=== PATIENT | female | born 1980 | race Caucasian/White ===

== ENCOUNTER 2024-12-27 02:46 | Day surgery (SDC) | payer OTHER, SELFPAY ==
[2024-12-13 10:20] VITALS: BMI 36.6
--- OUTSIDE RECORDS SUMMARY | 2024-12-27 02:49 | XMS_ITS | Patient Health Record ---
Author Organization [email or web address] [place] ([address]) Address [address] [place] [address] Care Team Providers Care Software Engineering Manager Name Role Phone Shannan HILLIARD, Christopher Primary Care Provider UnavailDr. Reinaldo Gibbs Unavailable [phone] Janelle Mendoza Unavailable Unavailable Bubba Ramirez Unavailable [phone] Allergies No Known Allergies Reason For Referral No Information Medications Medication SIG (Take, Route, Frequency, Duration) Notes Start Date End Date Status ANABELLA D OTC 24HR U nknown SINGULAIR 10 mg 1 tab(s) orally once a day; Duration: 30 day(s) Unknown MORPHINE 15 mg 1 tab(s) orally bid Unknown METHOCARBAMOL 750 mg 2 tab(s) orally 3 t imes a day Unknown VSL#3 - 1-2 cap(s) orally on ce a day; Duration: 30 days Active SUMATRIPTAN 100 mg 1 tab(s) orally bid prn Unknown MOVANTIK 12.5 mg 1 tab(s) as needed for constipation Unknown TRAZODONE 50mg 1 by mouth at bedtime 250mg at HS Unknown QULIPTA 60 mg 1 tab(s) orally once a day; Duration: 30 days 03/17/2023 Unknown BUSPIRONE 15 mg 1 tab(s) orally 2 ti mes a day; Duration: 30 day(s) Unknown DULOXETINE 60 mg 1 cap(s) orally once a day; Duration: 30 day(s) Unknown GLUMETZA 1000 mg 1 tab(s) orally once a day; Duration: 30 day(s) PCOS Unknown ATORVASTATIN 20 mg 1 tab(s) orally once a day; Duration: 30 day(s) Unknown Social History Tobacco Use: Social History Observation Description Date Details (start date - stop date) Former Smoker NA - NA Smoking Smart Form: Question Answer Notes Are you a: former smoker Additional Findings:Tobacco Non-User Non-smoker for caodaism reasons Section Notes: Former smoker, quite back in 2008. Drinks only rarely. Problems Problem Type SNOMED Code ICD Code Onset Dates Problem Status W/U Status Risk Notes Problem Morbid obesity (disorder) (058293860) Morbid (severe) obesity due to excess calories (E66.01) Active confirmed Problem Chronic migraine without aura, non-intractable (924572526108614 ) Chronic migraine without aura, not intractable, without status migrainosus (G43.709) Active confirmed Problem Drug induced headache (418515223792269 ) Drug-induced headache, not elsewhere classified, not intractable (G44.40) Active confirmed Problem Insomnia (724197941) Insomnia, unspecified (G47.00) Active confirmed Problem Cervicalgia (00303110) Cervicalgia (M54.2) Active confirmed Problem Tachycardia (6934301) Tachycardia, unspecified (R00.0) Active confirmed Problem Painful micturition (33843130) Painful micturition, unspecified (R30.9) Active confirmed Problem Malaise (178787576) Other malaise (R53.81) Active confirmed Problem Chronic fatigue syndrome (disorder) (14090845) Chronic fatigue, unspecified (R53.82) Active confirmed Problem Fatigue (50292469) Other fatigue (R53.83) Active confirmed Problem Abnormal weight gain (908262169) Abnormal weight gain (R63.5) Active confirmed Problem Muscle pain (33655567) Myalgia, unspecified site (M79.10) Active confirmed Vital Signs Height 62 in 12/14/2024 Weight 200.8 lbs 12/14/2024 BMI 36.72 kg/m2 12/14/2024 Encounters Encounter Location Date Provider Diagnosis Formerly [facility] [place] ([address]) [address] [place] [phone] 01/04/2024 Bubba Ramirez Morbid (severe) obesity due to excess calories E66.01 ; Chronic fatigue, unspecified R53.82 ; Other fatigue R53.83 ; Other malaise R53.81 ; Tachycardia, unspecified R00.0 ; Decreased libido R68.82 and Abnormal level of hormones in specimens from female genital organs R87.1 [facility] ([address]) [address] [place] [phone] 01/11/2024 Bubba James Morbid (severe) obesity due to excess calories E66.01 ; Chronic fatigue, unspecified R53.82 ; Other fatigue R53.83 ; Other malaise R53.81 ; Tachycardia, unspecified R00.0 ; Decreased libido R68.82 and Abnormal level of hormones in specimens from female genital organs R87.1 [facility] ([address]) [address] [place] [phone] 01/18/2024 Bubbaromaine Ramirez Morbid (severe) obesity due to excess calories E66.01 ; Chronic fatigue, unspecified R53.82 ; Other fatigue R53.83 ; Other malaise R53.81 ; Tachycardia, unspecified R00.0 ; Decreased libido R68.82 and Abnormal level of hormones in specimens from female genital organs R87.1 [facility] ([address]) [address] [place] [phone] 01/25/2024 Bubba Ramirez Morbid (severe) obesity due to excess calories E66.01 ; Chronic fatigue, unspecified R53.82 ; Other fatigue R53.83 ; Other malaise R53.81 ; Tachycardia, unspecified R00.0 ; Decreased libido R68.82 and Abnormal level of hormones in specimens from female genital organs R87.1 [facility] ([address]) [address] [place] [phone] 02/15/2024 Bubba Ramirez Morbid (severe) obesity due to excess calories E66.01 ; Chronic fatigue, unspecified R53.82 ; Other fatigue R53.83 ; Other malaise R53.81 ; Tachycardia, unspecified R00.0 ; Decreased libido R68.82 and Abnormal level of hormones in specimens from female genital organs R87.1 [facility] ([address]) [address] [place] [phone] 03/14/2024 Bubba Ramirez Morbid (severe) obesity due to excess calories E66.01 ; Chronic fatigue, unspecified R53.82 ; Other fatigue R53.83 ; Other malaise R53.81 ; Tachycardia, unspecified R00.0 ; Decreased libido R68.82 and Abnormal level of hormones in specimens from female genital organs R87.1 [facility] ([address]) [address] [place] [phone] 03/21/2024 Bubba Ramirez Morbid (severe) obesity due to excess calories E66.01 ; Chronic fatigue, unspecified R53.82 ; Other fatigue R53.83 ; Other malaise R53.81 ; Tachycardia, unspecified R00.0 ; Decreased libido R68.82 and Abnormal level of hormones in specimens from female genital organs R87.1 [facility] ([address]) [address] [place] [phone] 03/28/2024 Bubba James Morbid (severe) obesity due to excess calories E66.01 ; Chronic fatigue, unspecified R53.82 ; Other fatigue R53.83 ; Other malaise R53.81 ; Tachycardia, unspecified R00.0 ; Decreased libido R68.82 and Abnormal level of hormones in specimens from female genital organs R87.1 [facility] ([address]) [address] [place] [phone] 04/12/2024 Bubba Ramirez Morbid (severe) obesity due to excess calories E66.01 ; Chronic fatigue, unspecified R53.82 ; Other fatigue R53.83 ; Other malaise R53.81 ; Tachycardia, unspecified R00.0 ; Decreased libido R68.82 and Abnormal level of hormones in specimens from female genital organs R87.1 [facility] ([address]) [address] [place] [phone] 05/02/2024 Bubba James Morbid (severe) obesity due to excess calories E66.01 ; Chronic fatigue, unspecified R53.82 ; Other fatigue R53.83 ; Other malaise R53.81 ; Tachycardia, unspecified R00.0 ; Decreased libido R68.82 and Abnormal level of hormones in specimens from female genital organs R87.1 [facility] ([address]) [address] [place] [address] 05/16/2024 Bubba Ramirez Morbid (severe) obesity due to excess calories E66.01 ; Chronic fatigue, unspecified R53.82 ; Other fatigue R53.83 ; Other malaise R53.81 ; Tachycardia, unspecified R00.0 ; Decreased libido R68.82 and Abnormal level of hormones in specimens from female genital organs R87.1 [facility] [address] [facility] [address] [place] [address] 05/31/2024 Bubba Ramirez Morbid (severe) obesity due to excess calories E66.01 ; Chronic fatigue, unspecified R53.82 ; Other fatigue R53.83 ; Other malaise R53.81 ; Tachycardia, unspecified R00.0 ; Decreased libido R68.82 and Abnormal level of hormones in specimens from female genital organs R87.1 [facility] ([address]) [address] [place] [phone] 05/31/2024 Bubba Ramirez [facility] ([address]) [address] [place] [phone] 06/13/2024 Bubba Ramirez Morbid (severe) obesity due to excess calories E66.01 ; Chronic fatigue, unspecified R53.82 ; Other fatigue R53.83 ; Other malaise R53.81 ; Tachycardia, unspecified R00.0 ; Decreased libido R68.82 and Abnormal level of hormones in specimens from female genital organs R87.1 [facility] ([address]) [address] [place] [address] 07/04/2024 Bubba Ramirez [facility] ([address]) [address] [place] [address] 07/19/2024 Bubba Ramirez Morbid (severe) obesity due to excess calories E66.01 ; Chronic fatigue, unspecified R53.82 ; Other fatigue R53.83 ; Other malaise R53.81 ; Tachycardia, unspecified R00.0 ; Decreased libido R68.82 and Abnormal level of hormones in specimens from female genital organs R87.1 [facility] ([address]) [address] [place] [phone] 07/27/2024 Bubba Ramirez Morbid (severe) obesity due to excess calories E66.01 ; Chronic fatigue, unspecified R53.82 ; Other fatigue R53.83 ; Other malaise R53.81 ; Tachycardia, unspecified R00.0 ; Decreased libido R68.82 and Abnormal level of hormones in specimens from female genital organs R87.1 [facility] ([address]) [address] [place] [phone] 08/18/2024 Bubba Ramirez Morbid (severe) obesity due to excess calories E66.01 ; Chronic fatigue, unspecified R53.82 ; Other fatigue R53.83 ; Other malaise R53.81 ; Tachycardia, unspecified R00.0 ; Decreased libido R68.82 and Abnormal level of hormones in specimens from female genital organs R87.1 [facility] ([address]) [address] [place] [phone] 08/25/2024 Bubba Ramirez Morbid (severe) obesity due to excess calories E66.01 ; Chronic fatigue, unspecified R53.82 ; Other fatigue R53.83 ; Other malaise R53.81 ; Tachycardia, unspecified R00.0 ; Decreased libido R68.82 and Abnormal level of hormones in specimens from female genital organs R87.1 [facility] [address] [facility] [address] [place] [address] 08/25/2024 Bubba Ramirez [facility] ([address]) [address] [place] [phone] 08/31/2024 Bubba Ramirez Morbid (severe) obesity due to excess calories E66.01 ; Chronic fatigue, unspecified R53.82 ; Other fatigue R53.83 ; Other malaise R53.81 ; Tachycardia, unspecified R00.0 ; Decreased libido R68.82 and Abnormal level of hormones in specimens from female genital organs R87.1 [facility] ([address]) [address] [place] [phone] 09/21/2024 Bubba Ramirez Morbid (severe) obesity due to excess calories E66.01 ; Chronic fatigue, unspecified R53.82 ; Other fatigue R53.83 ; Other malaise R53.81 ; Tachycardia, unspecified R00.0 ; Decreased libido R68.82 and Abnormal level of hormones in specimens from female genital organs R87.1 [facility] ([address]) [address] [place] [phone] 10/18/2024 Bubba Ramirez Morbid (severe) obesity due to excess calories E66.01 ; Chronic fatigue, unspecified R53.82 ; Other fatigue R53.83 ; Other malaise R53.81 ; Tachycardia, unspecified R00.0 ; Decreased libido R68.82 and Abnormal level of hormones in specimens from female genital organs R87.1 [facility] ([address]) [address] [place] [phone] 11/01/2024 Bubba Ramirez Morbid (severe) obesity due to excess calories E66.01 ; Chronic fatigue, unspecified R53.82 ; Other fatigue R53.83 ; Other malaise R53.81 ; Tachycardia, unspecified R00.0 ; Decreased libido R68.82 and Abnormal level of hormones in specimens from female genital organs R87.1 [facility] ([address]) [address] [place] [phone] 11/29/2024 Bubba Ramirez Morbid (severe) obesity due to excess calories E66.01 ; Chronic fatigue, unspecified R53.82 ; Other fatigue R53.83 ; Other malaise R53.81 ; Tachycardia, unspecified R00.0 ; Decreased libido R68.82 and Abnormal level of hormones in specimens from female genital organs R87.1 [facility] ([address]) [address] [place] [phone] 12/14/2024 Bubba Ramirez Morbid (severe) obesity due to excess calories E66.01 ; Chronic fatigue, unspecified R53.82 ; Other fatigue R53.83 ; Other malaise R53.81 ; Tachycardia, unspecified R00.0 ; Decreased libido R68.82 and Abnormal level of hormones in specimens from female genital organs R87.1 [facility] ([address]) [address] [place] [phone] 12/14/2024 Bubba Ramirez [facility] ([address]) [address] [place] [phone] 02/29/2024 Bubba Ramirez Morbid (severe) obesity due to excess calories E66.01 ; Chronic fatigue, unspecified R53.82 ; Other fatigue R53.83 ; Other malaise R53.81 ; Tachycardia, unspecified R00.0 ; Decreased libido R68.82 and Abnormal level of hormones in specimens from female genital organs R87.1 [facility] ([address]) [address] [place] [phone] 02/29/2024 Bubba Ramirez Assessments Encounter Date Diagnosis (ICD Code) Assessment Notes Treatment Notes Treatment Clinical Notes Section Notes 01/04/2024 Morbid (severe) obesity due to excess calories (ICD-10 - E66.01) 01/04/2024 Chronic fatigue, unspecified (ICD-10 - R53.82) 01/11/2024 Chronic fatigue, unspecified (ICD-10 - R53.82) 01/11/2024 Morbid (severe) obesity due to excess calories (ICD-10 - E66.01) 01/18/2024 Morbid (severe) obesity due to excess calories (ICD-10 - E66.01) 01/18/2024 Chronic fatigue, unspecified (ICD-10 - R53.82) 01/25/2024 Morbid (severe) obesity due to excess calories (ICD-10 - E66.01) 01/25/2024 Chronic fatigue, unspecified (ICD-10 - R53.82) 02/15/2024 Morbid (severe) obesity due to excess calories (ICD-10 - E66.01) 02/15/2024 Chronic fatigue, unspecified (ICD-10 - R53.82) 02/29/2024 Chronic fatigue, unspecified (ICD-10 - R53.82) 02/29/2024 Morbid (severe) obesity due to excess calories (ICD-10 - E66.01) 03/14/2024 Morbid (severe) obesity due to excess calories (ICD-10 - E66.01) 03/14/2024 Chronic fatigue, unspecified (ICD-10 - R53.82) 03/21/2024 Morbid (severe) obesity due to excess calories (ICD-10 - E66.01) 03/21/2024 Chronic fatigue, unspecified (ICD-10 - R53.82) 03/28/2024 Morbid (severe) obesity due to excess calories (ICD-10 - E66.01) 03/28/2024 Chronic fatigue, unspecified (ICD-10 - R53.82) 04/12/2024 Morbid (severe) obesity due to excess calories (ICD-10 - E66.01) 04/12/2024 Chronic fatigue, unspecified (ICD-10 - R53.82) 05/02/2024 Morbid (severe) obesity due to excess calories (ICD-10 - E66.01) 05/02/2024 Chronic fatigue, unspecified (ICD-10 - R53.82) 05/16/2024 Chronic fatigue, unspecified (ICD-10 - R53.82) 05/16/2024 Morbid (severe) obesity due to excess calories (ICD-10 - E66.01) 05/31/2024 Morbid (severe) obesity due to excess calories (ICD-10 - E66.01) 05/31/2024 Chronic fatigue, unspecified (ICD-10 - R53.82) 06/13/2024 Morbid (severe) obesity due to excess calories (ICD-10 - E66.01) 06/13/2024 Chronic fatigue, unspecified (ICD-10 - R53.82) 07/19/2024 Morbid (severe) obesity due to excess calories (ICD-10 - E66.01) 07/19/2024 Chronic fatigue, unspecified (ICD-10 - R53.82) 07/27/2024 Morbid (severe) obesity due to excess calories (ICD-10 - E66.01) 07/27/2024 Chronic fatigue, unspecified (ICD-10 - R53.82) 08/18/2024 Morbid (severe) obesity due to excess calories (ICD-10 - E66.01) 08/18/2024 Chronic fatigue, unspecified (ICD-10 - R53.82) 08/25/2024 Chronic fatigue, unspecified (ICD-10 - R53.82) 08/25/2024 Morbid (severe) obesity due to excess calories (ICD-10 - E66.01) 08/31/2024 Morbid (severe) obesity due to excess calories (ICD-10 - E66.01) 08/31/2024 Chronic fatigue, unspecified (ICD-10 - R53.82) 09/21/2024 Morbid (severe) obesity due to excess calories (ICD-10 - E66.01) 09/21/2024 Chronic fatigue, unspecified (ICD-10 - R53.82) 10/18/2024 Morbid (severe) obesity due to excess calories (ICD-10 - E66.01) 10/18/2024 Chronic fatigue, unspecified (ICD-10 - R53.82) 11/01/2024 Chronic fatigue, unspecified (ICD-10 - R53.82) 11/01/2024 Morbid (severe) obesity due to excess calories (ICD-10 - E66.01) 11/29/2024 Morbid (severe) obesity due to excess calories (ICD-10 - E66.01) 11/29/2024 Chronic fatigue, unspecified (ICD-10 - R53.82) 12/14/2024 Morbid (severe) obesity due to excess calories (ICD-10 - E66.01) 12/14/2024 Chronic fatigue, unspecified (ICD-10 - R53.82) 12/14/2024 Other fatigue (ICD-10 - R53.83) 11/29/2024 Other fatigue (ICD-10 - R53.83) 11/01/2024 Other fatigue (ICD-10 - R53.83) 10/18/2024 Other fatigue (ICD-10 - R53.83) 09/21/2024 Other fatigue (ICD-10 - R53.83) 08/31/2024 Other fatigue (ICD-10 - R53.83) 08/25/2024 Other fatigue (ICD-10 - R53.83) 08/18/2024 Other fatigue (ICD-10 - R53.83) 07/27/2024 Other fatigue (ICD-10 - R53.83) 07/19/2024 Other fatigue (ICD-10 - R53.83) 06/13/2024 Other fatigue (ICD-10 - R53.83) 05/31/2024 Other fatigue (ICD-10 - R53.83) 05/16/2024 Other fatigue (ICD-10 - R53.83) 05/02/2024 Other fatigue (ICD-10 - R53.83) 04/12/2024 Other fatigue (ICD-10 - R53.83) 03/28/2024 Other fatigue (ICD-10 - R53.83) 03/21/2024 Other fatigue (ICD-10 - R53.83) 03/14/2024 Other fatigue (ICD-10 - R53.83) 02/29/2024 Other fatigue (ICD-10 - R53.83) 02/15/2024 Other fatigue (ICD-10 - R53.83) 01/25/2024 Other fatigue (ICD-10 - R53.83) 01/18/2024 Other fatigue (ICD-10 - R53.83) 01/11/2024 Other fatigue (ICD-10 - R53.83) 01/04/2024 Other fatigue (ICD-10 - R53.83) 01/04/2024 Other malaise (ICD-10 - R53.81) 01/11/2024 Other malaise (ICD-10 - R53.81) 01/18/2024 Other malaise (ICD-10 - R53.81) 01/25/2024 Other malaise (ICD-10 - R53.81) 02/15/2024 Other malaise (ICD-10 - R53.81) 02/29/2024 Other malaise (ICD-10 - R53.81) 03/14/2024 Other malaise (ICD-10 - R53.81) 03/21/2024 Other malaise (ICD-10 - R53.81) 03/28/2024 Other malaise (ICD-10 - R53.81) 04/12/2024 Other malaise (ICD-10 - R53.81) 05/02/2024 Other malaise (ICD-10 - R53.81) 05/16/2024 Other malaise (ICD-10 - R53.81) 05/31/2024 Other malaise (ICD-10 - R53.81) 06/13/2024 Other malaise (ICD-10 - R53.81) 07/19/2024 Other malaise (ICD-10 - R53.81) 07/27/2024 Other malaise (ICD-10 - R53.81) 08/18/2024 Other malaise (ICD-10 - R53.81) 08/25/2024 Other malaise (ICD-10 - R53.81) 08/31/2024 Other malaise (ICD-10 - R53.81) 09/21/2024 Other malaise (ICD-10 - R53.81) 10/18/2024 Other malaise (ICD-10 - R53.81) 11/01/2024 Other malaise (ICD-10 - R53.81) 11/29/2024 Other malaise (ICD-10 - R53.81) 12/14/2024 Other malaise (ICD-10 - R53.81) 12/14/2024 Tachycardia, unspecified (ICD-10 - R00.0) 10/18/2024 Tachycardia, unspecified (ICD-10 - R00.0) 11/29/2024 Tachycardia, unspecified (ICD-10 - R00.0) 11/01/2024 Tachycardia, unspecified (ICD-10 - R00.0) 09/21/2024 Tachycardia, unspecified (ICD-10 - R00.0) 08/31/2024 Tachycardia, unspecified (ICD-10 - R00.0) 08/25/2024 Tachycardia, unspecified (ICD-10 - R00.0) 08/18/2024 Tachycardia, unspecified (ICD-10 - R00.0) 07/27/2024 Tachycardia, unspecified (ICD-10 - R00.0) 07/19/2024 Tachycardia, unspecified (ICD-10 - R00.0) 06/13/2024 Tachycardia, unspecified (ICD-10 - R00.0) 05/31/2024 Tachycardia, unspecified (ICD-10 - R00.0) 05/16/2024 Tachycardia, unspecified (ICD-10 - R00.0) 05/02/2024 Tachycardia, unspecified (ICD-10 - R00.0) 03/28/2024 Tachycardia, unspecified (ICD-10 - R00.0) 04/12/2024 Tachycardia, unspecified (ICD-10 - R00.0) 03/21/2024 Tachycardia, unspecified (ICD-10 - R00.0) 03/14/2024 Tachycardia, unspecified (ICD-10 - R00.0) 02/29/2024 Tachycardia, unspecified (ICD-10 - R00.0) 02/15/2024 Tachycardia, unspecified (ICD-10 - R00.0) 01/25/2024 Tachycardia, unspecified (ICD-10 - R00.0) 01/18/2024 Tachycardia, unspecified (ICD-10 - R00.0) 01/11/2024 Tachycardia, unspecified (ICD-10 - R00.0) 01/04/2024 Tachycardia, unspecified (ICD-10 - R00.0) 01/04/2024 Decreased libido (ICD-10 - R68.82) 01/11/2024 Decreased libido (ICD-10 - R68.82) 01/18/2024 Decreased libido (ICD-10 - R68.82) 01/25/2024 Decreased libido (ICD-10 - R68.82) 02/15/2024 Decreased libido (ICD-10 - R68.82) 02/29/2024 Decreased libido (ICD-10 - R68.82) 03/14/2024 Decreased libido (ICD-10 - R68.82) 03/21/2024 Decreased libido (ICD-10 - R68.82) 03/28/2024 Decreased libido (ICD-10 - R68.82) 04/12/2024 Decreased libido (ICD-10 - R68.82) 05/31/2024 Decreased libido (ICD-10 - R68.82) 05/02/2024 Decreased libido (ICD-10 - R68.82) 05/16/2024 Decreased libido (ICD-10 - R68.82) 06/13/2024 Decreased libido (ICD-10 - R68.82) 07/19/2024 Decreased libido (ICD-10 - R68.82) 07/27/2024 Decreased libido (ICD-10 - R68.82) 08/18/2024 Decreased libido (ICD-10 - R68.82) 08/25/2024 Decreased libido (ICD-10 - R68.82) 08/31/2024 Decreased libido (ICD-10 - R68.82) 09/21/2024 Decreased libido (ICD-10 - R68.82) 11/01/2024 Decreased libido (ICD-10 - R68.82) 10/18/2024 Decreased libido (ICD-10 - R68.82) 11/29/2024 Decreased libido (ICD-10 - R68.82) 12/14/2024 Decreased libido (ICD-10 - R68.82) 12/14/2024 Abnormal level of hormones in specimens from female genital organs (ICD-10 - R87.1) 11/29/2024 Abnormal level of hormones in specimens from female genital organs (ICD-10 - R87.1) 10/18/2024 Abnormal level of hormones in specimens from female genital organs (ICD-10 - R87.1) 11/01/2024 Abnormal level of hormones in specimens from female genital organs (ICD-10 - R87.1) 09/21/2024 Abnormal level of hormones in specimens from female genital organs (ICD-10 - R87.1) 08/31/2024 Abnormal level of hormones in specimens from female genital organs (ICD-10 - R87.1) 08/25/2024 Abnormal level of hormones in specimens from female genital organs (ICD-10 - R87.1) 08/18/2024 Abnormal level of hormones in specimens from female genital organs (ICD-10 - R87.1) 07/27/2024 Abnormal level of hormones in specimens from female genital organs (ICD-10 - R87.1) 07/19/2024 Abnormal level of hormones in specimens from female genital organs (ICD-10 - R87.1) 06/13/2024 Abnormal level of hormones in specimens from female genital organs (ICD-10 - R87.1) 05/16/2024 Abnormal level of hormones in specimens from female genital organs (ICD-10 - R87.1) 05/02/2024 Abnormal level of hormones in specimens from female genital organs (ICD-10 - R87.1) 05/31/2024 Abnormal level of hormones in specimens from female genital organs (ICD-10 - R87.1) 04/12/2024 Abnormal level of hormones in specimens from female genital organs (ICD-10 - R87.1) 03/28/2024 Abnormal level of hormones in specimens from female genital organs (ICD-10 - R87.1) 03/21/2024 Abnormal level of hormones in specimens from female genital organs (ICD-10 - R87.1) 03/14/2024 Abnormal level of hormones in specimens from female genital organs (ICD-10 - R87.1) 02/29/2024 Abnormal level of hormones in specimens from female genital organs (ICD-10 - R87.1) 02/15/2024 Abnormal level of hormones in specimens from female genital organs (ICD-10 - R87.1) 01/25/2024 Abnormal level of hormones in specimens from female genital organs (ICD-10 - R87.1) 01/18/2024 Abnormal level of hormones in specimens from female genital organs (ICD-10 - R87.1) 01/11/2024 Abnormal level of hormones in specimens from female genital organs (ICD-10 - R87.1) 01/04/2024 Abnormal level of hormones in specimens from female genital organs (ICD-10 - R87.1) Plan Of Treatment Pending Test Test Name Order Date -HRT Female Pre Pellet 07/16/2023 Next Appt Details Provider Name:Bubba Ramirez , 01/02/2025 12:30:00 PM, [address], [address], [id number], Medical (General) History Medical History History ICD Code Obesity Migraine Cervical DDD s/p facet RFA Lumbar DDD s/p facet RFA Metabolic syndrome Anxiety Seasonal allergies HLD Insomnia
--- OUTSIDE RECORDS SUMMARY | 2024-12-27 02:50 | XMS_ITS ---
Author Organization [facility] [place] ([address]) Address [address] [place] [address] Care Team Providers Care Mold Designer Name Role Phone Shannan HILLIARD, Christopher Primary Care Provider UnavailDr. Reinaldo Gibbs Unavailable [phone] Janelle Mendoza Unavailable Unavailable Bubba Ramirez Unavailable [phone] REASON FOR VISIT [facility], on tirzepatide, started new control in April, encouraged increased water intake, reports decreased appetite suppression. Encouraged increased protein and resistance as tolerated, Desired weight loss: 100 lbs, -4.0 lbs since last visit (2 weeks ago), -45.0 lbs in t otal, No history MTC or MEN2 or pancreatitis, Concerned about future DM and OA Medications Medication SIG (Take, Route, Frequency, Duration) Notes Start Date End Date Status TRAZODONE 50mg 1 by mouth at bedtime 250mg at HS Unknown MOVANTIK 12.5 mg 1 tab(s) as needed for constipation Unknown SUMATRIPTAN 100 mg 1 tab(s) orally bid prn Unknown QULIPTA 60 mg 1 tab(s) orally once a day; Duration: 30 days 03/17/2023 Unknown METHOCARBAMOL 750 mg 2 tab(s) orally 3 t imes a day Unknown ATORVASTATIN 20 mg 1 tab(s) orally once a day; Duration: 30 day(s) Unknown GLUMETZA 1000 mg 1 tab(s) orally once a day; Duration: 30 day(s) PCOS Unknown DULOXETINE 60 mg 1 cap(s) orally once a day; Duration: 30 day(s) Unknown BUSPIRONE 15 mg 1 tab(s) orally 2 ti mes a day; Duration: 30 day(s) Unknown VSL#3 - 1-2 cap(s) orally on ce a day; Duration: 30 days Active ANABELLA D OTC 24HR U nknown MORPHINE 15 mg 1 tab(s) orally bid Unknown SINGULAIR 10 mg 1 tab(s) orally once a day; Duration: 30 day(s) Unknown Vital Signs Height 62 in 11/29/2024 Weight 202.6 lbs 11/29/2024 BMI 37.05 kg/m2 11/29/2024 Encounters Encounter Location Date Provider Diagnosis [facility] [place] ([address]) [address] [address] 11/29/2024 Bubba Ramirez Morbid (severe) obesity due to excess calories E66.01 ; Chronic fatigue, unspecified R53.82 ; Other fatigue R53.83 ; Other malaise R53.81 ; Tachycardia, unspecified R00.0 ; Decreased libido R68.82 and Abnormal level of hormones in specimens from female genital organs R87.1 Assessments Encounter Date Diagnosis (ICD Code) Assessment Notes Treatment Notes Treatment Clinical Notes Section Notes 11/29/2024 Morbid (severe) obesity due to excess calories (ICD-10 - E66.01) 11/29/2024 Chronic fatigue, unspecified (ICD-10 - R53.82) 11/29/2024 Other fatigue (ICD-10 - R53.83) 11/29/2024 Other malaise (ICD-10 - R53.81) 11/29/2024 Tachycardia, unspecified (ICD-10 - R00.0) 11/29/2024 Decreased libido (ICD-10 - R68.82) 11/29/2024 Abnormal level of hormones in specimens from female genital organs (ICD-10 - R87.1) Plan Of Treatment Medication Medication Name Sig Start Date Stop Date Notes VSL#3 - 1-2 cap(s) orally on ce a day; Duration: 30 days Next Appt Details Follow Up: 2 Weeks, Reason: GLP-1 Agonist Administration Provider Name:Bubba Ramirez , 01/02/2025 12:30:00 PM, [address] [address], [place], [address], Procedure Notes * Category Sub-Category Detail Notes Quell: Weight Management tirzepatide Indication: weig ht loss Concentration: 10 mg/mL Volume Administered: 0.6 mL Dose Administered: 6 mg Route: SQ Location: [facility] Frequency: weekly Lot Number/Expiration: Medication Source: Nutraceutical Comp ounding Adverse Reaction: None Progress Notes * Juan Manuel COLLINSModestaOB:1980 (44 yo F)Acc No.[id number]:11/29/2024 Weight Loss Patient: Estrella DOWNS Provider: Todd Ramirez MD :1980 A ge:44 Y S ex:Female Date:11/29/2024 Address:[address] [place] [address], [facility] Pcp:Christopher Campbell MD Subjective: * Chief Complaints: * 1 . [facility], on tirzepatide, started new control in April, encouraged increased water intake, reports decreased appetite suppression. Encouraged increased protein and resistance as tolerated. 2. Desired weight loss: 100 lbs, -4.0 lbs since last visit (2 weeks ago), -45.0 lbs in total. 3. No history MTC or MEN2 or pancreatitis. 4. Concerned about future DM and OA. * Medical History: * Medications: T alfredog VSL#3 - capsule 1-2 cap(s) orally once a day , Unknown TRAZODONE 50mg 1 by mouth at bedtime , Notes to Pharmacist: 250mg at HS, Unknown MOVANTIK 12.5 mg tablet 1 tab(s) as needed for constipation, Unknown SUMATRIPTAN 100 mg tablet 1 tab(s) orally bid prn , Unknown METHOCARBAMOL 750 mg tablet 2 tab(s) orally 3 times a day , Unknown MORPHINE 15 mg tablet 1 tab(s) orally bid , Unknown SINGULAIR 10 mg tablet 1 tab(s) orally once a day , Unknown ANABELLA D OTC 24HR , Unknown ATORVASTATIN 20 mg tablet 1 tab(s) orally once a day , Unknown GLUMETZA 1000 mg tablet, extended release 1 tab(s) orally once a day , Notes to Pharmacist: PCOS, Unknown DULOXETINE 60 mg delayed release capsule 1 cap(s) orally once a day , Unknown BUSPIRONE 15 mg tablet 1 tab(s) orally 2 times a day , Unknown QULIPTA 60 mg tablet 1 tab(s) orally once a day Objective: * Vitals: H t: 62 in, Wt:202.6lbs, BMI:37.05Index. Assessment: * Assessment: 1. M orbid (severe) obesity due to excess calories - E66.01 (Primary) 2 . C hronic fatigue, unspecified - R53.82 3 . O ther fatigue - R53.83 ?4. O ther malaise - R53.81 5 . T achycardia, unspecified - R00.0 & #160; 6 . D ecreased libido - R68.82 7 . A bnormal level of hormones in specimens from female genital organs - R87.1 Plan: * Treatment: * Procedures: Q uell: Weight Management: tirzepatide I ndication w eight loss C oncentration 1 0 mg/mL V olume Administered 0 .6 mL D ose Administered 6 mg R oute S Q L ocation L UA F requency w eekly L ot Number/Expiration 0 M edication Source A H Nutraceutical Compounding A dverse Reaction N one * Follow Up: 2 Weeks (Reason: GLP-1 Agonist Administration) * Billing Information: * Visit Code: * Procedure Codes: 48385 Quell - Weekly (tirzepatide) Tier 2. * Electronic signature of Doug Ramirez MD, FAAAAI on 12/27/2024 at 02:49 AM CDT Sign off status: Pending * Provider: Todd Ramirez MD Date: 0 11/29/2024 Generated for Maria Luisa davison/Carol/Tere on: 0 12/27/2024 02:49 AM CDT
--- OUTSIDE RECORDS SUMMARY | 2024-12-27 02:50 | XMS_ITS ---
Author Organization [facility] [place] ([address]) Address [address] [place] [address] Care Team Providers Care Public Relations Assistant Name Role Phone Shannan HILLIARD, Christopher Primary Care Provider UnavailDr. Reinaldo Gibbs Unavailable [phone] Janelle Mendoza Unavailable Unavailable Bubba Ramirez Unavailable [phone] REASON FOR VISIT [facility], on tirzepatide, reports 3-4 days of appetite suppression, has some GI side effects. Reviewed recommendations for probiotics and supplements., Desired weight loss: 100 lbs, -1.8 lbs since last visit (2 weeks ago), -46.8 lbs in total, No history MTC or MEN2 or pancreatitis,Concerned about future DM and OA Medications Medication SIG (Take, Route, Frequency, Duration) Notes Start Date End Date Status ANABELLA D OTC 24HR U nknown SINGULAIR 10 mg 1 tab(s) orally once a day; Duration: 30 day(s) Unknown MORPHINE 15 mg 1 tab(s) orally bid Unknown METHOCARBAMOL 750 mg 2 tab(s) orally 3 t imes a day Unknown SUMATRIPTAN 100 mg 1 tab(s) orally bid prn Unknown VSL#3 - 1-2 cap(s) orally on ce a day; Duration: 30 days Active MOVANTIK 12.5 mg 1 tab(s) as needed for constipation Unknown TRAZODONE 50mg 1 by mouth at bedtime 250mg at HS Unknown QULIPTA 60 mg 1 tab(s) orally once a day; Duration: 30 days 03/17/2023 Unknown BUSPIRONE 15 mg 1 tab(s) orally 2 ti mes a day; Duration: 30 day(s) Unknown ATORVASTATIN 20 mg 1 tab(s) orally once a day; Duration: 30 day(s) Unknown DULOXETINE 60 mg 1 cap(s) orally once a day; Duration: 30 day(s) Unknown GLUMETZA 1000 mg 1 tab(s) orally once a day; Duration: 30 day(s) PCOS Unknown Vital Signs Height 62 in 12/14/2024 Weight 200.8 lbs 12/14/2024 BMI 36.72 kg/m2 12/14/2024 Encounters Encounter Location Date Provider Diagnosis [facility] [place] ([address]) [address] [address] 12/14/2024 Bubba Ramirez Morbid (severe) obesity due to excess calories E66.01 ; Chronic fatigue, unspecified R53.82 ; Other fatigue R53.83 ; Other malaise R53.81 ; Tachycardia, unspecified R00.0 ; Decreased libido R68.82 and Abnormal level of hormones in specimens from female genital organs R87.1 Assessments Encounter Date Diagnosis (ICD Code) Assessment Notes Treatment Notes Treatment Clinical Notes Section Notes 12/14/2024 Morbid (severe) obesity due to excess calories (ICD-10 - E66.01) 12/14/2024 Chronic fatigue, unspecified (ICD-10 - R53.82) 12/14/2024 Other fatigue (ICD-10 - R53.83) 12/14/2024 Other malaise (ICD-10 - R53.81) 12/14/2024 Tachycardia, unspecified (ICD-10 - R00.0) 12/14/2024 Decreased libido (ICD-10 - R68.82) 12/14/2024 [...] , 01/02/2025 12:30:00 PM, [address] [address], [place], [address], Procedure Notes * Category Sub-Category Detail Notes Quell: Weight Management tirzepatide Indication: weig ht loss Concentration: 10 mg/mL Volume Administered: 0.6 mL Dose Administered: 6 mg Route: SQ Location: [facility] Frequency: weekly Lot Number/Expiration: Medication Source: Nutraceutical Comp ounding Adverse Reaction: None Progress Notes * Bogdan WILLISOB:1980 (44 yo F)Acc No.[id number]:12/14/2024 Weight Loss Patient: Estrella DOWNS Provider: Todd Ramirez MD :1980 A ge:44 Y S ex:Female Date:12/14/2024 Address:[address] [place] [address], [facility] Pcp:Christopher Campbell MD Subjective: * Chief Complaints: * 1 . [facility], on tirzepatide, reports 3-4 days of appetite suppression, has some GI side effects. Reviewed recommendations for probiotics and supplements.. 2. Desired weight loss: 100 lbs, -1.8 lbs since last visit (2 weeks ago), -46.8 lbs in total. 3. No history MTC [...] Objective: * Vitals: H t: 62 in, Wt: 200.8 lbs, BMI:36.72Index. Assessment: * Assessment: 1. M orbid (severe) [...] Information: * Visit Code: * Procedure Codes: 96891 Quell - Weekly (tirzepatide) Tier 2. * Electronic signature of Doug Ramirez MD, FAAAAI on 12/27/2024 at 02:49 AM CDT Sign off status: Pending * Provider: Todd Ramirez MD Date: 0 12/14/2024 Generated for Trenai laney/Carol/Tere on: 0 12/27/2024 02:49 AM CDT
--- OUTSIDE RECORDS SUMMARY | 2024-12-27 02:50 | XMS_ITS | Data Portability ---
Author Organization [facility], [address] [facility] ([place]) Address [address] 4th [place] [address] Assessment Encounter Date Assessment Date Assessment LastModified by Organization Details LastModified Time 05/03/2024 05/03/2024 -- Pap screen: ACOG recommendations reviewed. Pap smear completed, notify result when available -- Breast care: Clinical breast exam performed. Discussion of self breast awareness. Continue mammogram screenings yearly -- Vaccinations: Declines vaccinations -- Diet and exercise were encouraged to obtain and maintain healthy weight. -- Colonoscopy: Recommend age 45 -- Contraception: Transition patient to progestin only contraception. We discussed the pros versus the cons of each progestin only, patient would like to continue with progestin only pill, 2 sample packs of saline given to patient. Discussed with patient she is contraindicated for combination control due to her migraines with aura. -- Sexually transmitted infection screening: Requested -- Bone density testing: Deferred -- Partners and prevention sheet provided. -- The patient was encouraged to continue care with her primary care provider for the management of medical comorbidities and other health maintenance screening. -- Hepatitis C screening: Not completed -- GHTN/GDM: Nulliparous -- Breast and ovarian cancer syndrome screening questionnaire: Negative The patient's questions were answered in their entirety. She verbalized her understanding above discussion. I asked her to return in 1 year's time otherwise when necessary is indicated. [email or web address] Not available 05/04/2024 08:50:12 Plan of Treatment Reminders Order Date Submit Date Provider Last Modified By Organization Details Last Modified Time Details Appointments None [facility] Pap test, slide(s ), cervica l [facility]23 [facility], [address], [address], 08:57:01 CT + NG DNA, PCR, unspeci fied specime n 2023 [facility] [place] [facility], [address] [place] [address], [address], 12:27:43 Referral None recorde d. Procedures None recorde d. Surgeries None recorde d. Imaging MAMMO, screeni ng, digital , bilater al 2023 [facility], [address], [address], 4 09:44:32 Medication Orders Slynd 4 mg (28) tablet 2023 [facility], [address] [place], [address], 4 15:26:55 Patient TargetsNo targets recorded. Patient InstructionsNo instructions recorded. Reason for Referral None Reported. Results Created Date Observation Date Name Description Value Unit Range Abnormal Flag Note LastModifiedBy Organization Detail LastModifiedTime 05/03/2005/04/2024 CT + NG DNA, PCR, unspe cifie d speci men GC/CT/TV DNA probe Not Available [facility] [address] [place] [address], [id number], 05/04/2024 12:27:43 05/03/20 24 05/04/2024 CT + NG DNA, PCR, unspe cifie d speci men GC-DNA probe NEGATI VE negati ve Not Available [facility] [address] [place] [address], [id number], 05/04/2024 12:27:43 05/03/20 24 05/04/2024 CT + NG DNA, PCR, unspe cifie d speci men chlamydia-DN A probe NEGATI VE negati ve This is a PCR assay that detec ts DNA from Chlam ydia trach omati s, Neiss eria gonor rhoea e, and Trich omona s vagin amy. A posit michi resul t does not neces saril y indic ate the prese nce of viabl e organ isms and there fore can not be used to asses s thera peuti c succe ss. This assay is only appro sherif for femal e vagin al and male and femal e urine speci mens. This assay shoul d not be used for evalu ation of suspe cted sexua l abuse or for medic o-leg al indic ation s. Not Available [facility] [address] [place] [address], [id number], 05/04/2024 12:27:43 05/03/20 24 05/04/2024 CT + NG DNA, PCR, unspe cifie d speci men trichomonas NEGATI VE negati ve Not Available [facility] [address] [place] [address], [id number], 05/04/2024 12:27:43 05/03/20 24 05/03/2024 GYNEC OLOGI C CYTOL OGY REPOR T gas jockey/aC Perfo rmed at[facility] Order ing Provi elizabeth: Coco Shah nt Name: SHABBIR BUENO dmitry #: [id number] /A ge/Ge nder: 06/09 (Age: 43) / F Proce dure Date: 05/03 SP ECIME N RECEI SHERIF * SureP ath HPV DNA with Pap, Cervi debby/E ndoce rvica l Speci men Adequ acy Satis facto ry for evalu ation Endoc ervic al cell/ trans forma tion zone compo nent prese nt Cytol ogic Diagn osis Negat michi for intra epith elial lesio n or malig tatyana Shift in alondra sugge stive of bacte rial vagin osis MH STS EL ECTRO NICAL LY VERIF IED BY JESSE ON T JESSE ON, SCT(A SCP)C M 05/18 13:49 HPV Testi ng Date Order ed: 05/04 Date Repor adrianne: 05/06 09:21 Inter preta tion NEGAT MICHI for high risk types of HPV Test Infor matio n Human Papil lomav irus (HPV) testi ng perfo rmed using the [facility] perez 4800 HPV Test ([address] [address] [facility], [place] elizabeth , [place] ). The perez HPV Test is a polym erase chain react ion (PCR) -base d DNA ampli ficat ion test that simul taneo usly ident ifies a singh d resul t for 12 HR HPV types (HPV- 31, 33, 35, 39, 45, 51, 52, 56, 58, 59, 66 and 68) and indiv idual resul ts for HPV-1 6 and HPV-1 8. High Risk HPV types are assoc iated with cervi debby carci noma and its predi sposi ng lesio ns: cervi debby atypi a and high grade squam ous intra epith elial lesio n (mode rate and sever e dyspl koko, carci noma in situ/ CHARL[place]TE 2 and CHARLOTTE 3). The U.S. Food and Drug Admin istra tion (FDA) has appro sherif this test for use with SureP ath speci mens. The perfo rmanc e eulalio cteri stics of this test were verif ied by the [facility] ([facility], [place] [facility]). [facility] is autho rized under Clini debby Labor atory Impro vemen t Amend ments (CLIA ) to perfo rm high- compl exity testi ng. Recom menda tion The Ameri can Cance r Socie ty (ACS) , Ameri can Socie ty for Colpo scopy and Cervi debby Patho logy (ASCC P), and Ameri can Socie ty for Clini debby Patho logy (ASCP ) recom mends that women who recei ve negat imchi resul ts on both tests shoul d be rescr eened no more frequ ently than every five years . HPV DNA posit michi, cytol ogy negat michi women shoul d be follo wed conse rvati vely repea ting BOTH tests in 12 month s. HPV-n egati ve ASC-U S shoul d be rescr eened with co-te sting in 3 years . All other Pap test inter preta tions shoul d be follo wed accor ding to ASCCP Conse nsus Guide lines for that parti cular inter preta tion. HPV testi ng is order ed as part of refle x testi ng as indic ated by the requi sitio n order and/o r as a resul t of addit ional testi ng reque sts submi tted by the physi yaneth. EL ECTRO NICAL LY VERIF IED BY JESSE ON T JESSE ON, SCT(A SCP)C M 05/06 09:21 CL INICA L/MEN STRUA L HISTO RY Menst rual Hx: Ivanna l cycli ng Other Clini debby Condi tions : ICD-1 0 Code: z01.4 19 The Pap test is a scree edison test for uteri ne cervi debby cance r with an inher ent, but low false negat michi rate. A biops y is recom grazyna d for any suspi cious or visib le lesio n. The patie nt shoul d be remin ded to consu lt a gynec ologi c care provi elizabeth if they exper ience any suspi cious signs or sympt oms regar dless of the Pap test resul t. END OF REPOR T Not Available [place] Only - [facility] [address] [facility], [place], [address], 05/18/2024 14:50:05 05/04/20 24 05/03/2024 MAMMO , scree edison, digit al, bilat eral [facility] [address]st [address] [address] Teleph one [phone] Name: NEEL WILLIS [id number] am Date: 2023 Age: 43Phys ician: MARIBEL OLSEN, COCO : 1979Ex aminat ion: MAMM BILATE RAL DIGITA L SCREEN ING EXAM: MAMM BILATE RAL DIGITA L SCREEN ING, MAMM SCREEN ING TOMOSY NTHESI S ACCESS ION: [id number], [id number] 12 EXAM DATE: 2023 4:00 PM HISTOR Y: This is a 43-yea r-old female who presen ts for her screen ing mammog sirena with no breast compla ints. COMPAR MAYELA: Prior studie s dating back to 021. DENSIT Y: There are scatte red areas of fibrog landul ar densit y. FINDIN GS: 2D digita l compos ite views as well as 3D digita l tomosy nthesi s views were perfor med. There are no suspic ious masses , calcif icatio ns, or other findin gs within either breast . IMPRES DMITRY: There is no mammog raphic eviden ce of malign jeremiah. The patien t should return in one year for her annual mammog sirena. She should return sooner if clinic ally nigel silver. ASSESS MENT: BI-RAD S 1: Negati ve. RECOMM ENDATI ON: 1. Screen ing Mammog sirena in 1 year. COMMEN TS: The patien t will be entere d into an automa adrianne remind er system for a screen ing mammog sirena in 1 year. The patien t has been or will be contac adrianne with the result s of this exam. Electr onical ly signed in Black cribe by: LUCY APONTE RES, MD on: 4 8:41 AM cc: Page PAGE 1 of NUMPAG ES 1 [email or web address] [facility] Only - [facility] [address] [place] [address], [id number], 05/04/2024 10:17:58 10/15/19 25 07/23/2021 imagi ng/di agnos tic resul t No observ ation record ed. [email or web address] Not Available 22:14:45 10/15/19 25 07/23/2021 imagi ng/di ryleeos tic resul t No observ ation record ed. [email or web address] Not Available 22:14:46 Result Notes Documentation Provider Name and Address Organization Details Recorded Time Mammo, Screening, Digital, Bilateral : [facility] [address] [address] Name: NEEL WILLIS Date: 05/03/2024 Age: 43Physician: MARIBEL OLSEN BETH : 1980Examination: MAMM BILATERAL DIGITAL SCREENING EXAM: MAMM BILATERAL DIGITAL SCREENING, MAMM SCREENING TOMOSYNTHESIS [id number] EXAM DATE: 05/03/2024 4:00 PM HISTORY: This is a 43-year-old female who presents for her screening mammogram with no breast complaints. COMPARISON: Prior studies dating back to 10/18/2020. DENSITY: There are scattered areas of fibroglandular density. FINDINGS: 2D digital composite views as well as 3D digital tomosynthesis views were performed. There are no suspicious masses, calcifications, or other findings within either breast. IMPRESSION: There is no mammographic evidence of malignancy. The patient should return in one year for her annual mammogram. She should return sooner if clinically indicated. ASSESSMENT: BI-RADS 1: Negative. RECOMMENDATION: 1. Screening Mammogram in 1 year. COMMENTS: The patient will be entered into an automated reminder system for a screening mammogram in 1 year. The patient has been or will be contacted with the results of this exam. Electronically signed in PowerScribe by: LUCY GORE MD on:05/04/2024 8:41 AM cc: Page PAGE 1 of NUMPAGES 1 Coco Olsen APRN, CNM [address], [address], [facility] 05/04/2024 10:17:58 Problems Name Problem SNOMED Code Status Onset Date Resolution Date Notes Provider Name and Address Organization Details Recorded Time Irregular periods 15937178 Active 2023 Daria espinoza, [facility] 4 13:22:51 Migraine with typical aura 288853425 Active 2023 Coco Olsen APRN, CN [address] [place] [address], [phone], [facility] 4 08:49:02 Candidiasis of vagina 25251728 Active 2024 Tiana olvera null, [facility] 5 15:28:10 Problem Notes None recorded. Procedures Surgical History Date Name Laterality Status Provider Name and Address Organization Details Recorded Time 05/03/20 24 Date of Last Pap Smear completed Coco Olsen APRN, JORGE [address] [place] [address], [id number], [facility] 05/23/2024 09:05:27 03/23/20 24 Date of Last Mammogram completed Daria Trinh [facility] 03/22/2024 19:38:16 Dilation and curettage completed Tiana Coronel [facility] 11/03/2023 15:21:17 Imaging Results None recorded. Procedure Notes None recorded. Medical Equipment None Reported. Medications Name Sig Start Date Stop Date Status Note LastModified by Organization Details LastModified Time medroxyprogest erone 10 mg tablet TAKE ONE TABLET BY MOUTH EVERY DAY FOR 10 DAYS active Not Available Not Available No t Available metformin 500 mg tablet TAKE TWO TABLETS BY MOUTH TWICE DAILY active Not Available Not Available No t Available atorvastatin 20 mg tablet take ONE TABLET BY MOUTH daily active Not Available Not Available No t Available fluconazole 150 mg tablet Take 1 tablet every 72 hours by oral route. 2024 active Not Available Not Available Not Avai lable sumatriptan 100 mg tablet TAKE ONE TABLET (100 mg) orally daily As Needed for migraine headache, Max Daily Dose 200mg; may repeat dose in 2 hours if symptoms persist active Not Available Not Available No t Available methocarbamol 750 mg tablet 1 tab(s) orally 3 times a day 30 days active Not Available Not Available No t Available trazodone 100 mg tablet TAKE TWO AND ONE-HALF tablets BY MOUTH AT BEDTIME FOR insomnia active Not Available Not Available No t Available montelukast 10 mg tablet take ONE tablet BY MOUTH daily active Not Available Not Available No t Available morphine ER 15 mg tablet,extende d release 1 tab(s) orally every 12 hours 30 days active Not Available Not Available No t Available drospirenone 3 mg-ethinyl estradiol 0.03 mg tablet Take 1 tablet every day by oral route. active Not Available Not Available No t Available buspirone 15 mg tablet Take ONE tablet by MOUTH THREE times a DAY active Not Available Not Available No t Available duloxetine 60 mg capsule,delaye d release take ONE capsule BY MOUTH TWICE DAILY active Not Available Not Available No t Available lactulose 10 gram/15 mL oral solution TAKE 15 ML BY MOUTH TWICE DAILY FOR 15 DAYS active Not Available Not Available No t Available Movantik 25 mg tablet TAKE 1 TABLET BY MOUTH ONCE DAILY active Not Available Not Available No t Available Slynd 4 mg (28) tablet Take 1 tablet every day by oral route. active Not Available Not Available No t Available Qulipta 60 mg tablet TAKE 1 TABLET BY MOUTH DAILY active Not Available Not Available No t Available Vitals Date Recorded Body height Body mass index (BMI) Body weight Systolic And Diastolic Provider Name and Address Organization Details Last Updated DateTime 05/03/2024 158.75 cm 37 kg/m2 45573.23 g 120/82 mm[Hg] [facility] 05/03/2024 16:14:22 Social History Question Answer Notes LastModified by Organizat ion Details LastModified Time Tobacco Smoking Status Former Smoker [facility] 05/03/2024 16:17:28 When Did You Quit Smoking? 15 Years Ago [email or web address] Information not available 05/03/2024 Sex: Unknown Functional Status None recorded. Mental Status None recorded. Family History Relationship Description Onset Age of this Age Resolved Age Notes LastModified by Organization Details LastModified Time Sister Familial cancer of breast 45 [email or web address] Not available 15:20:49 Mother Familial cancer of breast 65 [email or web address] Not available 15:20:49 Medical History No medical history recorded. Gynecological History Statement/Question Response Abnormal Pap Y Date of Last Mammogram 03/23/2024 Date of LMP 04/08/2024 Menses Monthly Y STIs/STDs N HPV Vaccine N Date of Last Pap Smear 05/03/2024 Current Control Method BCPs Obstetrics History GPAL:G 0 P 0 0 0 0 Past Encounters Encounter ID Performer Location Encounter Start Date Encounter Closed Date Diagnosis/Indication Diagnosis SNOMED-CT Code Diagnosis ICD10 Code Diagnosis Note [id number] Coco Olsen, PAINT BRUSH MAKER, CNM [facility] ([place]) [address] [place] [address] 05/03/2024 15:58:33 05/03/2024 17:23:52 Screening mammography of bilateral breasts 9374777895 33268 Z12.31 Gynecologi c examination 43355224 Z01.419 Venereal d isease screening 862792470 Z11.3 Migraine w ith typical aura 556209202 G43.109 Contracept ion care management 434862049 Z30.8 Health Concerns Section Related Observation LastModified by Organization Detai ls LastModified Time None Recorded Concern Status LastModified by Organization Details LastModified Time None Recorded Advance Directives Directive None Recorded Payers Insurance Date Sequence Insurance Name Policy Number Policy Arauz Covered Member ID Arauz Member ID Guarantor Name 05/03/2024 1 [place] [employer] Neel Willis [id number] Neel Willis 05/06/2024 1 [facility] - DUAL ELIGIBLE (MEDICARE REPLACEMENT/AD VANTAGE - HMO) Neel Willis [id number] Neel Willis 05/18/2024 1 [facility] - DOS ON OR AFTER 20 (MEDICAID REPLACEMENT - HMO) Neel Willis [id number] Neel Willis Notes Date Note Type Note Provider Name and Address Organization Details Recorded Time 05/03/2024 text/html This is a patien t of Dr. Cory De La Rosa presents today for annual visit. She currently is on combination oral contraceptive pills for management of menses. LMP 04/08, experienced prolonged menses. She is currently on her second pill pack. Discussed with patient regarding history of migraines, with her severity and affects with migraines concern of contraindication with combination control pills. Pap smear screening test completed in 2020 was negative/positive high risk HPV, 2021 was negative/negative high risk HPV. She completed mammogram screening today, history of asymmetry of the breast in 2021. Denies any tobacco, alcohol or drug use. Patient is sexually active and monogamous relationship but she is requesting STD screening. Coco Olsen APRN, CNM [address] [place] [address], [phone], [facility] 05/05/2024 17:59:06 OBGyn Episode No OBEpisode recorded.
--- OUTSIDE RECORDS SUMMARY | 2024-12-27 02:50 | XMS_ITS | Clinical Summary ---
Author Organization [facility] Address [address] [place] [address] Care Team Providers Care Television Maintenance Man Name Role Phone Christopher Campbell MD Primary Care Provider [phone] Allergies Active Allergy Reactions Criticality Noted Date Comments Steroids Unknown 07/23/2021 Social History Tobacco Use Types Packs/Day Years Used Date Smoking Tobacco: Never Assessed Comments No Sex and Gender Information Value Date Recorded Sex Assigned at Not on file Legal Sex Female 2:53 PM CDT Gender Identity Not on file Sexual Orientation Not on file Last Filed Vital Signs Vital Sign Reading Time Taken Comments Blood Pressure 139/93 07/23/2021 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 Pulse 99 07/23/2021 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 Temperature 37.2 C (99 F) 07/23/2021 3:25 PM FOOT DRILL OPERATOR Respiratory Rate 19 07/23/2021 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 Oxygen Saturation 94% 07/23/2021 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 Inhaled Oxygen Concentration - - Weight - - Height - - Body Mass Index - - Plan of Treatment Health Maintenance Due Date Last Done Comments Cervical Cancer Screening Pa p Smear (Age 30 to 64) Every 3 Years 1979 Colorectal Cancer Screening Colonoscopy (10 Years) 1979 Annual Physical 1982 Hepatitis C 1997 DTaP, Tdap and Td Vaccines ( 1 - Tdap) 1998 Hepatitis B Vaccines (1 of 3 - 19+ 3-dose series) 1998 Cervical Cancer Screening Pa p with HPV Testing (Age 30 to 64) Every 5 Years 2009 Cervical Cancer Screening wi th HPV 2009 Mammogram Screening 2019 COVID-19 Vaccine (2023-2 5 season) 2024 04/08/2021, 03/17/2021 HPV Vaccines Aged Out No longer eligi ble based on patient's age to complete this topic Meningococcal B Vaccine Aged Out No l onger eligible based on patient's age to complete this topic Meningococcal Vaccine Aged Out No brett monalisa eligible based on patient's age to complete this topic Pneumococcal Vaccine: Pediatrics (0 to 5 Years) and At-Risk Patients (6 to 49 Years) Aged Out No longer eligible b ased on patient's age to complete this topic RSV Immunizations Under 20 Months Aged Out No longer eligible b ased on patient's age to complete this topic Insurance Care Teams Television Maintenance Man Relationship Specialty Start Date End Date Christopher Campbell MD [address] [address] PCP - General FAMILY PRACTICE 01/24/20
--- OUTSIDE RECORDS SUMMARY | 2024-12-27 02:50 | XMS_ITS ---
Author Organization [facility] [place] ([address]) Address [address] [place] [address] Care Team Providers Care Registered Dental Assistant Rda Name Role Phone Shannan HILLIARD, Christopher Primary Care Provider UnavailDr. Reinaldo Gibbs Unavailable [phone] Janelle Mendoza Unavailable Unavailable Bubba Ramirez Unavailable [phone] REASON FOR VISIT InBody Follow-up Encounters Encounter Location Date Provider Diagnosis [facility] [place] ([address]) [address] [facility] [address] [place] [address] 12/14/2024 Bubba Ramirez Plan Of Treatment Next Appt Details Provider Name:Bubba Ramirez , 01/02/2025 12:30:00 PM, [address] [facility] [address], [place], [address], Progress Notes * Bogdan WILLISOB:1980 (44 yo F)Acc No.[id number]:12/14/2024 InBody Follow-up Patient: Saritha Estrella WRIGHT Provider: Todd Ramirez MD :1980 A ge:44 Y S ex:Female Date:12/14/2024 Address:[address] [place] [address], [facility] Pcp:Christopher Campbell MD Subjective: * Chief Complaints: * 1 . InBody Follow-up. * Medical History: Objective: * Vitals: Assessment: Plan: * Treatment: * Billing Information: * Visit Code: * Procedure Codes: * Electronic signature of Doug Ramirez MD, FAAAAI on 12/27/2024 at 02:49 AM CDT Sign off status: Pending * Provider: Todd Ramirez MD Date: 0 12/14/2024 Generated for Maria Luisa davison/Carol/Tere on: 0 12/27/2024 02:49 AM CDT
--- OUTSIDE RECORDS SUMMARY | 2024-12-27 02:50 | XMS_ITS | Clinical Summary ---
Author Organization [facility] Address [address] [place] [address] Care Team Providers Care Mold Closer Helper Name Role Phone Unavailable Primary Care Provider Unavailabl e Immunizations Immunization Administration Dates Next Due Covid-19, Mrna, Lnp-s, Pf, 30 Mcg/0.3 Ml Dose (Todd sung) 03/17/2021 Social History Tobacco Use Types Packs/Day Years Used Date Smoking Tobacco: Never Assessed Comments Unknown Sex and Gender Information Value Date Recorded Sex Assigned at Not on file Legal Sex Female 12:25 AM CDT Gender Identity Not on file Sexual Orientation Not on file Plan of Treatment Health Maintenance Due Date Last Done Comments Hepatitis C Virus (HCV) Screening 1980 TdaP Immunization 1980 Human Papillomavirus (HPV) Immunization (1 - 3-dose series) 1994 Hepatitis B Immunization (1 of 3 - 19+ 3-dose series) 1998 SARS-COV-2 Immunization ( - 2023- season) 2024 04/08/2021, 03/17/2021 Cologuard 2024 Colonoscopy 2024 Colorectal Cancer Screening 2024 Immunochemical Fecal Occult Blood 2024 Influenza Immunization (Seas on Ended) 2025 02/21/2020 Respiratory Syncytial Virus (RSV) Immunization (Adult) (1 - 1-dose 75+ series) 2054 Meningococcal Immunization (ACWY) Aged Out No longer eligible b ased on patient's age to complete this topic Pneumococcal Immunization Combined Aged Out No longer eligible b ased on patient's age to complete this topic Rotavirus Immunization Aged Out No lo nger eligible based on patient's age to complete this topic
[2024-12-27 09:30] VITALS: BP 106/78; PULSE 80; RESP 18; TEMP 36.5; O2SAT 98
[2024-12-27 09:34] LABS: BEDSIDEPREGUCG Negative (Negative)
[2024-12-27] MEDS: LACTATED RINGERS 1,000 ML 150 ML IV CONT (09:43)
--- NOTE | 2024-12-27 10:10 | WPDANESEPPF ---
Anes - Initial Pre Proc Eval Procedure: Operation Date: 12/27/24 10:30 Proposed Procedures p Screening Colonoscopy - Rikki Escoto DO Date/Time: 12/27/24 10:10 Surgeon: Rikki Escoto DO Pre Op Diagnosis: Neoplasm screening Patient Data Age: 44 Gender: F Height: 1.57 m Weight: 89.3 kg Last Vital Signs Temp 36.5 C 12/27/24 09:30 Pulse 80 12/27/24 09:30 Resp 18 12/27/24 09:30 BP 106/78 12/27/24 09:30 Pulse Ox 98 12/27/24 09:30 O2 Del Method Room Air 12/27/24 09:30 Allergies Allergy/AdvReac Type Severity Reaction Status Date / Time Neuromuscular Blockers, AdvReac Intermediate Unknown Verified 12/27/24 09:20 Steroidal Home Medications ?Medication ?Instructions ?Recorded ?Confirmed ?Type naloxegol 25 mg tablet (Movantik) 25 mg PO QAM #90 tabs 05/28/19 12/13/24 Rx morphine 15 mg tablet,extended 15 mg PO Q12H 10/16/20 12/13/24 History release methocarbamol 750 mg tablet 750 mg PO TID 07/22/21 12/13/24 History ondansetron HCl 4 mg tablet 4 mg PO Q8H PRN nausea and 01/19/23 12/13/24 Rx vomiting #20 tabs buspirone 15 mg tablet 15 mg PO TID #270 tabs 04/22/23 12/13/24 Rx atorvastatin 20 mg tablet 20 mg PO DAILY #90 tabs 11/02/24 12/13/24 Rx montelukast 10 mg tablet 10 mg PO DAILY #90 tabs 11/02/24 12/13/24 Rx trazodone 100 mg tablet See Rx Instructions .Route 11/02/24 12/13/24 Rx .COMPLEX #270 tabs albuterol sulfate 90 mcg/actuation 1 inh inhalation Q4H PRN shortness 11/29/24 12/13/24 Rx aerosol inhaler (ProAir HFA) of breath or wheezing #8.5 grams drospirenone (contraceptive) 4 mg 1 tablet PO DAILY 11/29/24 12/13/24 History (28) tablet (Slynd) sumatriptan succinate 100 mg tablet 100 mg PO DAILY PRN migraine 11/29/24 12/13/24 Rx headache #10 tabs atogepant 60 mg tablet (Qulipta) 60 mg PO DAILY #90 tabs 12/01/24 12/13/24 Rx CORTI/SMOOTH 3 tablet PO HS 12/13/24 12/13/24 History CORTI/SOOTHE 2 tablet PO HS 12/13/24 12/13/24 History duloxetine 60 mg capsule,delayed 120 mg PO DAILY 12/13/24 12/13/24 History release fexofenadine 180 mg tablet 180 mg PO DAILY 12/13/24 12/13/24 History lisdexamfetamine 40 mg capsule 40 mg PO DAILY #30 caps 12/13/24 Rx (Vyvanse) magnesium glycinate 4 tablet PO HS 12/13/24 12/13/24 History pseudoephedrine HCl 30 mg tablet 60 mg PO ONCE 12/13/24 12/13/24 History (Sudafed) tirzepatide (weight loss) 6 mg continuous subcutaneous 12/13/24 12/27/24 History infusion WEEKLY metformin 500 mg tablet 1,000 mg (2 x 500 mg) PO BID #360 12/20/24 Rx tabs Laboratory Tests 12/27/24 09:30 POC Urine HCG, Qual Negative (Negative) Patient hx anesthesia problems: none Family hx anesthesia problems: none Results Review: All pre-operative results and documents have been reviewed as part of the pre-operative evaluation. [facility] Past Medical History Medical History (Updated 12/27/24 @ 10:10 by Trevor Rodas MD) Preoperative clearance Tear meniscus knee Morbid obesity Lipoma of back Family History Family History Mother Hypertension Asthma Family history of allergic disorder Breast cancer Diabetes mellitus Father Family history of malignant neoplasm of urinary bladder Kidney failure Basal cell carcinoma (BCC) Sibling Breast cancer Social History Social History Years smoked: 10 Smoking status: Former smoker Tobacco type: cigarettes Second hand tobacco smoke exposure: No Alcohol intake: current Substance use: never Substance use type: does not use Living arrangements: alone Additional living arrangements comments: parents Occupation/Education: unemployed Gender identity (if verbalized by the patient): Female Sexual Orientation (if Verbalized by the Patient): Straight or Heterosexual Spiritual care concerns: No Agree to blood products: Yes Anes - Eval Final PreProcedure Day of Procedure 12/27/24 10:10 Patient weight: obese Heart: regular rate and rhythm Lungs: clear to auscultation Airway: Mallampati scale class II Neurological: alert and oriented Last oral intake: >/= 8 hours ASA classification: III Emergent: no Anesthetic plan: proceed Anesthesia type and monitoring: general GIVS and standard monitoring Results Review: All pre-operative results and documents have been reviewed as part of the pre-operative evaluation. Informed Consent: The patient's anesthetic plan and its attendant risks and benefits were discussed with the patient/family/POA. Questions were solicited and answers provided to the satisfaction of the patient/family/POA.
--- NOTE | 2024-12-27 10:38 | PM.IMHP ---
H&P: HPI History of Present Illness Date/Time: 12/27/24 10:38 Chief Complaint: screening for colorectal cancer Narrative: this is a 44-year-old woman who presents for colonoscopy. She has never had a colonoscopy before. She denies any hematochezia or melena. She denies family history of colon cancer but states her sister did have precancerous polyps and had to have a segmental resection. Review of Systems Review of Systems: All systems reviewed & are unremarkable except as noted in HPI and below Constitutional: Constitutional: Denies chills, Denies fever(s), Denies headache(s) and Denies weight loss Eyes: Eyes: Denies change in vision ENT: Denies dizziness, Denies headache(s), Denies neck mass and Denies throat swelling Cardiovascular: Cardiovascular: Denies chest pain, Denies lightheadedness and Denies dyspnea Respiratory: Respiratory: Denies cough, Denies dyspnea and Denies wheezing Gastrointestinal: Gastrointestinal: Denies abdominal pain, Denies change in bowel habits, Denies nausea and Denies vomiting Genitourinary: Genitourinary: Denies hematuria and Denies dysuria Musculoskeletal: Musculoskeletal: Reports as per HPI Integumentary/Breasts: Skin/Breast: Reports as per HPI Neurologic: Denies dizziness and Denies headache(s) Allergic/Immunologic: Allergic/Immunologic: Denies throat swelling and Denies wheezing PMFSH Past Medical History Medical History (Updated 12/27/24 @ 10:10 by Trevor Rodas MD) Preoperative clearance Tear meniscus knee Morbid obesity Lipoma of back Family History Family History Mother Hypertension Asthma Family history of allergic disorder Breast cancer Diabetes mellitus Father Family history of malignant neoplasm of urinary bladder Kidney failure Basal cell carcinoma (BCC) Sibling Breast cancer Social History Social History Years smoked: 10 Smoking status: Former smoker Tobacco type: cigarettes Second hand tobacco smoke exposure: No Alcohol intake: current Substance use: never Substance use type: does not use Living arrangements: alone Additional living arrangements comments: parents Occupation/Education: unemployed Gender identity (if verbalized by the patient): Female Sexual Orientation (if Verbalized by the Patient): Straight or Heterosexual Spiritual care concerns: No Agree to blood products: Yes Meds Home Medications and Allergies Home Medications ?Medication ?Instructions ?Recorded ?Confirmed ?Type naloxegol 25 mg tablet (Movantik) 25 mg PO QAM #90 tabs 05/28/19 12/13/24 Rx morphine 15 mg tablet,extended 15 mg PO Q12H 10/16/20 12/13/24 History release methocarbamol 750 mg tablet 750 mg PO TID 07/22/21 12/13/24 History ondansetron HCl 4 mg tablet 4 mg PO Q8H PRN nausea and 01/19/23 12/13/24 Rx vomiting #20 tabs buspirone 15 mg tablet 15 mg PO TID #270 tabs 04/22/23 12/13/24 Rx atorvastatin 20 mg tablet 20 mg PO DAILY #90 tabs 11/02/24 12/13/24 Rx montelukast 10 mg tablet 10 mg PO DAILY #90 tabs 11/02/24 12/13/24 Rx trazodone 100 mg tablet See Rx Instructions .Route 11/02/24 12/13/24 Rx .COMPLEX #270 tabs albuterol sulfate 90 mcg/actuation 1 inh inhalation Q4H PRN shortness 11/29/24 12/13/24 Rx aerosol inhaler (ProAir HFA) of breath or wheezing #8.5 grams drospirenone (contraceptive) 4 mg 1 tablet PO DAILY 11/29/24 12/13/24 History (28) tablet (Slynd) sumatriptan succinate 100 mg tablet 100 mg PO DAILY PRN migraine 11/29/24 12/13/24 Rx headache #10 tabs atogepant 60 mg tablet (Qulipta) 60 mg PO DAILY #90 tabs 12/01/24 12/13/24 Rx CORTI/SMOOTH 3 tablet PO HS 12/13/24 12/13/24 History CORTI/SOOTHE 2 tablet PO HS 12/13/24 12/13/24 History duloxetine 60 mg capsule,delayed 120 mg PO DAILY 12/13/24 12/13/24 History release fexofenadine 180 mg tablet 180 mg PO DAILY 12/13/24 12/13/24 History lisdexamfetamine 40 mg capsule 40 mg PO DAILY #30 caps 12/13/24 Rx (Vyvanse) magnesium glycinate 4 tablet PO HS 12/13/24 12/13/24 History pseudoephedrine HCl 30 mg tablet 60 mg PO ONCE 12/13/24 12/13/24 History (Sudafed) tirzepatide (weight loss) 6 mg continuous subcutaneous 12/13/24 12/27/24 History infusion WEEKLY metformin 500 mg tablet 1,000 mg (2 x 500 mg) PO BID #810 12/20/24 Rx tabs Allergies Allergy/AdvReac Type Severity Reaction Status Date / Time Neuromuscular Blockers, AdvReac Intermediate Unknown Verified 12/27/24 09:20 Steroidal Vital Signs Vital Signs - 24 hr 12/27/24 09:30 Temperature 97.7 F Pulse Rate 80 Respiratory Rate 18 Blood Pressure 106/78 Pulse Oximetry 98 Oxygen Delivery Room Air Exam Const: General: no acute distress and alert Orientation/consciousness: patient oriented x3 HENMT: Head: normocephalic and atraumatic Ears: hearing grossly normal bilaterally Face/Nose/Sinus: Normal nares present Mouth: Yes Normal oral and palatal mucosa present Eyes: Periorbital: periorbital findings normal Sclera: sclerae normal EOM: EOMs intact bilaterally Neck: Neck: normal visual inspection, no lymphadenopathy and trachea midline Chest: Chest palpation & inspection: normal inspection of the chest Resp: Effort & Inspection: normal respiratory effort Auscultation: clear to auscultation bilaterally Cardio: Jugular venous distension: no JVD Rate: regular rate Rhythm: regular rhythm Heart sounds: S1 normal heart sound present and S2 normal heart sound present Peripheral pulses: Peripheral pulses 2+ throughout GI: Inspection: normal to inspection GI Palp: Yes Soft to palpation, No Tenderness to palpation present (GI), No Guarding due to palpation present (GI) and No Rebound tenderness present Percussion: Yes normal to percussion Auscultation: normal bowel sounds : General: Yes no CVA tenderness Back/Spine/Pelvis: Back: no CVA tenderness Neuro: General: patient oriented x3, no focal motor deficits and CN's II-XI intact bilaterally Cognition (Neuro): normal cognition Speech: normal speech Motor exam (neuro): 5/5 motor strength present throughout Extrem: General: capillary refill normal and no clubbing, cyanosis or edema Assessment and Plan Assessment and plan (1) Screening for colon cancer: Code(s): Z12.11 - Encounter for screening for malignant neoplasm of colon Status: Acute Assessment and Plan: I have recommended colonoscopy. I have discussed the procedure, risks, benefits, and alternatives. Questions were answered. Patient is agreeable to proceed.
[2024-12-27 11:06] VITALS: BP 101/55; PULSE 81; RESP 12; O2SAT 99
[2024-12-27 11:16] VITALS: BP 109/71; PULSE 77; RESP 22; O2SAT 99
[2024-12-27 11:26] VITALS: BP 106/60; PULSE 69; RESP 21; O2SAT 99
== END 2024-12-27 11:41 | disposition home or self-care (01) ==
PROVIDERS: Anesthesiology; PCP Family Medicine; Visit Provider Surgery
PROC: 0DJD8ZZ Inspection of Lower Intestinal Tract, Via Natural or Artificial Opening Endoscopic (ICD-10-PCS; CPT 45378; principal; 2024-12-27 10:30)
DX: Z12.11 Encounter for screening for malignant neoplasm of colon (principal); E66.01 Morbid (severe) obesity due to excess calories; Z68.36 Body mass index [BMI] 36.0-36.9, adult; Z79.891 Long term (current) use of opiate analgesic; Z79.51 Long term (current) use of inhaled steroids; Z79.84 Long term (current) use of oral hypoglycemic drugs; Z79.85 Long-term (current) use of injectable non-insulin antidiabetic drugs; Z87.891 Personal history of nicotine dependence; Z83.719 Family history of colon polyps, unspecified; Z80.52 Family history of malignant neoplasm of bladder; Z80.3 Family history of malignant neoplasm of breast; Z80.8 Family history of malignant neoplasm of other organs or systems
CPT/HCPCS: 45378; J2003; J2704; J7120